=== PATIENT | female | born 1945 | race Caucasian/White ===

== ENCOUNTER 2018-08-24 15:03 | Emergency (ER) | payer OTHER ==
[~2018-08-24] VITALS: Ht 154.9 cm; Wt 67.1 kg
[~2018-08-24 15:03] MED LIST: MICARDIS20 MG; SYNTHROID50 MCG; VYTORIN 10-20 M1 TAB
== END 2018-08-24 23:37 | disposition home or self-care (01) ==
LOC: ER 15:03
DX: S72.422A Displaced fracture of lateral condyle of left femur, initial encounter for closed fracture (principal); W01.198A Fall on same level from slipping, tripping and stumbling with subsequent striking against other object, initial encounter; Y93.89 Activity, other specified; Y92.89 Other specified places as the place of occurrence of the external cause; Y99.8 Other external cause status

== ENCOUNTER 2018-11-08 10:15 | Outpatient (CLI) | payer OTHER | END 2018-11-08 10:20 | disposition home or self-care (01) | LOC: RAD 10:15 | DX: S72.465A Nondisplaced supracondylar fracture with intracondylar extension of lower end of left femur, initial encounter for closed fracture (principal) ==

== ENCOUNTER 2018-12-27 09:47 | Outpatient (CLI) | payer OTHER | END 2018-12-27 09:49 | disposition home or self-care (01) | LOC: RAD 09:47 | DX: S72.465D Nondisplaced supracondylar fracture with intracondylar extension of lower end of left femur, subsequent encounter for closed fracture with routine healing (principal) ==